=== PATIENT | female | born 1995 | race African-American/Black ===

== ENCOUNTER 2016-12-02 11:27 | Emergency (ER) | payer OTHER ==
[2016-12-02 14:26] VITALS: BP 118/72
== END 2016-12-02 14:26 | disposition home or self-care (01) ==
LOC: ED 11:27
DX: L05.01 Pilonidal cyst with abscess (principal)

== ENCOUNTER 2017-02-03 11:50 | Emergency (ER) | payer OTHER ==
[~2017-02-03] VITALS: Ht 160 cm; Wt 60.8 kg
[2017-02-03 12:01] VITALS: BP 125/77
== END 2017-02-03 14:01 | disposition home or self-care (01) ==
LOC: ED 11:50
DX: S20.211A Contusion of right front wall of thorax, initial encounter (principal); M25.531 Pain in right wrist; M79.641 Pain in right hand; W50.0XXA Accidental hit or strike by another person, initial encounter; Y93.67 Activity, basketball; Y99.8 Other external cause status; Y92.89 Other specified places as the place of occurrence of the external cause

== ENCOUNTER 2017-05-16 11:22 | Emergency (ER) | payer OTHER ==
[2017-05-16 12:16] VITALS: BP 122/57
== END 2017-05-16 12:16 | disposition home or self-care (01) ==
LOC: ED 11:22
DX: L50.9 Urticaria, unspecified (principal)

== ENCOUNTER 2017-10-21 16:51 | Emergency (ER) | payer OTHER ==
[~2017-10-21] VITALS: Ht 160 cm; Wt 58.0 kg
[2017-10-21 17:15] VITALS: BP 118/74; Ht 160 cm; Wt 58.0 kg
== END 2017-10-21 18:25 | disposition home or self-care (01) ==
LOC: ED 16:51
DX: L02.211 Cutaneous abscess of abdominal wall (principal)
CPT/HCPCS: J2001

== ENCOUNTER 2017-10-23 08:42 | Emergency (ER) | payer OTHER ==
[~2017-10-23] VITALS: Ht 160 cm; Wt 57.6 kg
[2017-10-23 08:46] VITALS: Ht 160 cm; Wt 57.6 kg
[2017-10-23 09:02] VITALS: BP 111/57
== END 2017-10-23 09:02 | disposition home or self-care (01) ==
LOC: ED 08:42
DX: Z48.01 Encounter for change or removal of surgical wound dressing (principal)

== ENCOUNTER 2018-01-07 11:23 | Emergency (ER) | payer OTHER ==
[~2018-01-07] VITALS: Ht 157.5 cm; Wt 61.8 kg
[2018-01-07 11:28] VITALS: BP 131/60; Ht 157.5 cm; Wt 61.8 kg
== END 2018-01-07 12:45 | disposition home or self-care (01) ==
LOC: ED 11:23
DX: S63.615A Unspecified sprain of left ring finger, initial encounter (principal); S63.613A Unspecified sprain of left middle finger, initial encounter; X58.XXXA Exposure to other specified factors, initial encounter; Y93.61 Activity, american tackle football; Y92.89 Other specified places as the place of occurrence of the external cause; Y99.8 Other external cause status

== ENCOUNTER 2018-02-22 15:19 | Emergency (ER) | payer OTHER ==
[~2018-02-22] VITALS: Ht 160 cm; Wt 59.4 kg
[2018-02-22 15:29] VITALS: Ht 160 cm; Wt 59.4 kg
[2018-02-22 16:27] VITALS: BP 118/66
== END 2018-02-22 16:27 | disposition home or self-care (01) ==
LOC: ED 15:19
DX: J01.90 Acute sinusitis, unspecified (principal); J02.9 Acute pharyngitis, unspecified

== ENCOUNTER 2018-05-07 12:02 | Emergency (ER) | payer OTHER ==
[~2018-05-07] VITALS: Ht 157.5 cm; Wt 60.0 kg
[2018-05-07 12:16] VITALS: Ht 157.5 cm; Wt 60.0 kg
[2018-05-07 12:51] VITALS: BP 123/78
== END 2018-05-07 12:51 | disposition left against medical advice (07) ==
LOC: ED 12:02
DX: L50.8 Other urticaria (principal); L25.9 Unspecified contact dermatitis, unspecified cause

== ENCOUNTER 2018-05-19 08:51 | Emergency (ER) | payer OTHER ==
[~2018-05-19] VITALS: Ht 157.5 cm; Wt 60.0 kg
[2018-05-19 08:54] VITALS: BP 124/76; Ht 157.5 cm; Wt 60.0 kg
[2018-05-19 09:22] LABS: BASOPHIL % 0.9 % (0-2); PLATELET COUNT 238 x10^3mcL (130-400); RED CELL DISTRIBUTION WIDTH 13.9 % (11.5-14.5)
[2018-05-19 09:34] LABS: CALCIUM 8.9 mg/dL (8.5-10.1); CARBON DIOXIDE 29.6 mmol/L (21-32); CHLORIDE SERUM 104 mmol/L (98-107); CREATININE SERUM 0.9 mg/dL (0.6-1.0); GFR1 > 60 mL/min; GLUCOSE SERUM 82 mg/dL (74-106); POTASSIUM SERUM 3.6 mmol/L (3.5-5.1); SODIUM SERUM 137 mmol/L (136-145)
[2018-05-19 09:37] LABS: UA SPECIFIC GRAVITY >=1.030 (1.005-1.035); microscopic required? YES; urine erythrocyte 1+ (NEGATIVE)
[2018-05-19 09:39] LABS: ALBUMIN 3.5 g/dL (3.4-5.0); ALKALINE PHOSPHATASE 46 U/L (46-116); ALT/SGPT 14 U/L (14-59); AST/SGOT 18 U/L (15-37); BILIRUBIN TOTAL 0.7 mg/dL (0.20-1.00); TOTAL PROTEIN, SERUM 8.1 g/dL (6.4-8.2)
== END 2018-05-19 10:37 | disposition home or self-care (01) ==
LOC: ED 08:51
PROVIDERS: Emergency Medicine
DX: N39.0 Urinary tract infection, site not specified (principal)
CPT/HCPCS: 36415

== ENCOUNTER 2018-05-29 19:41 | Emergency (ER) | payer OTHER ==
[~2018-05-29] VITALS: Ht 157.5 cm; Wt 61.7 kg
[2018-05-29 19:46] VITALS: BP 122/72; Ht 157.5 cm; Wt 61.7 kg
== END 2018-05-29 21:09 | disposition home or self-care (01) ==
LOC: ED 19:41
DX: S43.402A Unspecified sprain of left shoulder joint, initial encounter (principal); W22.8XXA Striking against or struck by other objects, initial encounter; Y93.67 Activity, basketball; Y92.310 Basketball court as the place of occurrence of the external cause; Y99.8 Other external cause status
CPT/HCPCS: J1885

== ENCOUNTER 2018-07-14 14:04 | Emergency (ER) | payer OTHER ==
[~2018-07-14] VITALS: Ht 157.5 cm; Wt 60.3 kg
[2018-07-14 14:08] VITALS: BP 115/62; Ht 157.5 cm; Wt 60.3 kg
== END 2018-07-14 15:23 | disposition home or self-care (01) ==
LOC: ED 14:04
DX: L08.89 Other specified local infections of the skin and subcutaneous tissue (principal); R22.0 Localized swelling, mass and lump, head

== ENCOUNTER 2020-04-09 11:30 | Emergency (ER) | payer OTHER ==
[~2020-04-09] VITALS: Ht 160 cm; Wt 64.9 kg
[2020-04-09 11:57] VITALS: BP 127/90; Ht 160 cm; Wt 64.9 kg
== END 2020-04-09 16:01 | disposition left against medical advice (07) ==
LOC: ED 11:30
DX: Z53.21 Procedure and treatment not carried out due to patient leaving prior to being seen by health care provider (principal)